=== PATIENT | female | born 1955 | race African-American/Black ===

== ENCOUNTER 2022-11-11 14:40 | Emergency (ER) | payer MEDICARE ==
[~2022-11-11] VITALS: Ht 172.7 cm; Wt 86.2 kg
[2022-11-11 14:41] VITALS: BP 136/72
--- NOTE | 2022-11-11 14:41 | NUR ---
BIBA to bed 04
[2022-11-11 15:47] LABS: BASOPHILS # (AUTO) 0.1 K/uL (0.00-0.22); BASOPHILS % (AUTO) 0.7 % (0.0-2.0); EOSINOPHILS # (AUTO) 0.6 K/uL (0-0.4); HEMATOCRIT 39.1 % (36-48); HEMOGLOBIN 12.8 g/dL (12.0-16.0); LYMPHOCYTES # (AUTO) 2.6 K/uL (2.5-16.5); LYMPHOCYTES % (AUTO) 23.5 % (20.5-51.1); MEAN CORPUSCULAR HEMOGLOBIN 28 pg (27-31); MEAN CORPUSCULAR HGB CONC 33 g/dL (33-37); MEAN CORPUSCULAR VOLUME 86.1 fL (80-94); MONOCYTES # (AUTO) 0.7 K/uL (0.8-1.0); MONOCYTES % (AUTO) 6.7 % (1.7-9.3); NEUTROPHILS # (AUTO) 7.1 K/uL (1.8-7.7); NEUTROPHILS % (AUTO) 64.1 % (42.2-75.2); PLATELET COUNT (AUTO) 312 K/uL (140-450); RED BLOOD CELL COUNT(AUTO) 4.54 MIL/uL (4.20-5.40); RED CELL DISTRIBUTION WIDTH 14.7 % (11.6-13.7); WHITE BLOOD COUNT (AUTO) 11.1 K/uL (4.8-10.8)
[2022-11-11 16:07] LABS: ALBUMIN 3.9 g/dL (3.4-5.0); ANION GAP 9.6 (8-16); CREATININE 1.1 mg/dL (0.6-1.3); POTASSIUM 3.6 mmol/L (3.5-5.1); TOTAL BILIRUBIN 0.2 mg/dL (0.0-1.0)
--- NOTE | 2022-11-11 18:32 | NUR ---
SISTER: PORFIRIO [phone] SISTER: ZOHREH LANDA [phone] BROTHER IN LAW: LUZ [phone]
[2022-11-11 19:32] LABS: APPEARANCE,URINE CLEAR (CLEAR); BILIRUBIN,URINE NEGATIVE (NEGATIVE); BLOOD, URINE NEGATIVE (NEGATIVE); COLOR,URINE YELLOW (YELLOW); LEUKOCYTE ESTERASE ,URINE NEGATIVE (NEGATIVE); NITRITE, URINE NEGATIVE (NEGATIVE); PH,URINE 6.5 (5.0-9.0); UGLUCOSE NEGATIVE (NEGATIVE)
[2022-11-11 22:38] VITALS: BP 144/70
--- NOTE | 2022-11-11 22:39 | NUR ---
Patient discharged with v/s stable. Written and verbal after care instructions given and explained. Patient verbalized understanding. Wheel Chair Assisted with caregiver. All questions addressed prior to discharge. Advised to follow up with PMD.
== END 2022-11-11 22:38 | disposition home or self-care (01) ==
LOC: MED 14:40
DX: R10.30 Lower abdominal pain, unspecified (principal); Z91.013 Allergy to seafood
CPT/HCPCS: 36415; 80053; 81003; 83690; 85025; 99284